=== PATIENT | female | born 1995 | race Caucasian/White ===

== ENCOUNTER → 2017-04-14 | Outpatient (CLI) | payer OTHER ==
[~2017-04-14] MED LIST: AMOCLA875 PO; AMOX500 PO; ARIP10 PO; Abilify5 MG; BUSP10; BUSP10 PO; Cortisporin Ear10 ML RIGHTEAR; HYDPAM50; HYDR1TAB94 PO; IBUP800 PO; MECL25 PO; MEDR150I IM; Norco 5-325 Ta1 EACH PO; OMEP10ER PO; ONDA4ODT SL; PARO20 PO; Pepcid20 MG PO; Percocet 5-3251 EACH PO; Prazosin HCl1 MG PO; SULTRIDS PO; TRAZ100 PO; VENL150ER PO; VENL75ER; VENL75ER PO; Vistaril25 MG PO
[2017-04-14 17:04] LABS: BASOPHILS ABSOLUTE AUTO 0.02 K/mm3 (0.00-0.23); BASOPHILS PERCENT AUTO 0 % (0-2); EOSINOPHILS PERCENT AUTO 0 % (0-6); Hematocrit 38.5 % (33.0-51.0); Hemoglobin 12.7 g/dL (11.5-16.0); IMMATURE GRAN ABSOLUTE AUTO 0.03 K/mm3 (0.00-0.10); IMMATURE GRAN PERCENT AUTO 0 % (0-1); LYMPHOCYTES ABSOLUTE AUTO 2.07 K/mm3 (0.84-5.20); LYMPHOCYTES PERCENT AUTO 28 % (21-46); MONOCYTES ABSOLUTE AUTO 0.58 K/mm3 (0.16-1.47); MONOCYTES PERCENT AUTO 8 % (4-13); Mean Corpuscular HGB 30.5 pg (26.0-34.0); Mean Corpuscular Volume 92 fL (80-100); Mean Platelet Volume 10.9 fL (9.1-12.4); NEUTROPHILS ABSOLUTE AUTO 4.61 K/mm3 (1.96-9.15); NEUTROPHILS PERCENT AUTO 63 % (41-73); Platelet Count 292 K/mm3 (150-400); RDW Coefficient Variation 12.1 % (11.7-14.2); RDW Standard Deviation 41.3 fL (35.1-46.3); Red Blood Cell Count 4.17 M/mm3 (3.80-5.20); White Blood Cell Count 7.31 K/mm3 (4.00-11.30)
[2017-04-14 17:28] LABS: Alanine Aminotransfer (ALT/SGP 33 U/L (12-78); Albumin, Blood 3.8 g/dL (3.4-5.0); Albumin/Globulin Ratio 1.1 (0.8-1.8); Alk Phos 65 U/L (50-136); Anion Gap 8 mmol/L (6-16); Aspartate Aminotrans (AST/SGOT 16 U/L (12-37); Bilirubin, Total 0.2 mg/dL (0.1-1.0); Blood Urea Nitrogen 10 mg/dL (8-24); Bun/Creatinine Ratio 21.3 (12.0-20.0); CO2, Blood 25 mmol/L (21-32); Calcium, Blood 8.7 mg/dL (8.5-10.1); Chloride, Blood 108 mmol/L (98-108); Creatinine, Blood 0.47 mg/dL (0.40-1.00); Globulin, Blood 3.5 g/dL (2.2-4.0); Glomerular Filtration Rate >60 (60-); Glucose, Blood 87 mg/dL (70-99); Potassium, Blood 3.9 mmol/L (3.5-5.5); Sodium, Blood 141 mmol/L (136-145); Total Protein, Blood 7.3 g/dL (6.4-8.2)
[2017-04-14 17:35] LABS: Thyroid Stimulating Hormone 0.493 uIU/mL (0.360-4.800)
== END | disposition home or self-care (01) ==
LOC: LAB 15:29
PROVIDERS: Hospitalist
DX: K62.5 Hemorrhage of anus and rectum (principal); R53.83 Other fatigue; R30.0 Dysuria
CPT/HCPCS: 80053; 84439; 84443; 85025; 87086

== ENCOUNTER 2017-05-31 08:37 | Day surgery (SDC) | payer OTHER ==
[~2017-05-31] VITALS: Ht 162.6 cm; Wt 72.2 kg
== END 2017-05-31 10:20 | disposition home or self-care (01) ==
LOC: ORSCSDS 08:37
PROVIDERS: Internal Medicine Gastroenterology
PROC: 0DBN8ZX Excision of Sigmoid Colon, Via Natural or Artificial Opening Endoscopic, Diagnostic (ICD-10-PCS; principal; 2017-05-31 09:45)
PROC: 0DB98ZX Excision of Duodenum, Via Natural or Artificial Opening Endoscopic, Diagnostic (ICD-10-PCS; principal; 2017-05-31 09:45)
DX: K92.0 Hematemesis (principal); R10.13 Epigastric pain; K29.80 Duodenitis without bleeding; K20.9 Esophagitis, unspecified; R19.7 Diarrhea, unspecified; D12.5 Benign neoplasm of sigmoid colon; K62.5 Hemorrhage of anus and rectum; K64.8 Other hemorrhoids; F31.9 Bipolar disorder, unspecified
CPT/HCPCS: 88305; 88342; J2250; J7120

== ENCOUNTER 2020-05-14 03:44 | Emergency (ER) | payer BC ==
[~2020-05-14] VITALS: Ht 162.6 cm; Wt 79.4 kg
[2020-05-14] MEDS ORDERED: Ativan1 MG PO (05:12)
== END 2020-05-14 05:32 | disposition home or self-care (01) ==
LOC: ER 03:44
DX: F41.1 Generalized anxiety disorder (principal); F43.0 Acute stress reaction; F17.210 Nicotine dependence, cigarettes, uncomplicated; Z88.8 Allergy status to other drugs, medicaments and biological substances
CPT/HCPCS: 99284

== ENCOUNTER → 2022-11-25 | Outpatient (CLI) | payer OTHER ==
[~2022-11-25] MED LIST changes: +Ativan1 MG PO
[2022-11-25 16:59] LABS: U Amphetamine Screen Not Detected; U Barbituate Screen Not Detected; U Benzodiazapine Screen Not Detected; U Buprenorphine Screen Not Detected; U Cannabinoids Screen DETECTED; U Cocaine Screen Not Detected; U Methadone Screen Not Detected; U Methamphetamine Screen Not Detected; U Opiates Screen Not Detected; U Oxycodone Screen Not Detected; U Phencyclidine Screen Not Detected; U Propoxyphene Screen Not Detected
== END | disposition home or self-care (01) ==
LOC: LAB 15:36 → LAB SHORT 15:36
PROVIDERS: Internal Medicine Critical Care Medicine
DX: R40.0 Somnolence (principal)

== ENCOUNTER 2023-09-06 16:47 | Emergency (ER) | payer OTHER ==
[~2023-09-06] VITALS: Ht 162.6 cm; Wt 77.1 kg
[~2023-09-06 16:47] MED LIST changes: +DIVA125 PO; +Divalproex Sod500 MG PO; +HYDPAM50 PO; +LORA.5 PO; +OMEP20ER PO; +ZIPR80 PO
[2023-09-06 16:51] VITALS: BP 146/88
[2023-09-06] MEDS ORDERED: Lidocaine HCl 4% Cream 5 GM TOP ONE (17:10)
[2023-09-06] MEDS ORDERED: ASPERFLEX LIDOC15 GM TOP (17:12)
== END 2023-09-06 17:24 | disposition home or self-care (01) ==
LOC: ER 16:47
DX: K64.9 Unspecified hemorrhoids (principal); F31.9 Bipolar disorder, unspecified; F17.210 Nicotine dependence, cigarettes, uncomplicated; Z79.899 Other long term (current) drug therapy; Z88.8 Allergy status to other drugs, medicaments and biological substances
CPT/HCPCS: A9270

== ENCOUNTER 2024-01-03 09:26 | Day surgery (SDC) | payer OTHER ==
[~2024-01-03 09:26] MED LIST changes: +ASPERFLEX LIDOC15 GM TOP; +Lactated Ringer's 1,000 ML IV ONE; +propofoL 50 ML IV ONE
[2024-01-03] MEDS ORDERED: HYDCHL50 (10:36)
[2024-01-03] MEDS ORDERED: Lactated Ringer's 1,000 ML IV ONE (11:05)
[2024-01-03 12:22] VITALS: BP 100/70
== END 2024-01-03 12:24 | disposition home or self-care (01) ==
LOC: ORSCSDS 09:26
PROVIDERS: Surgery
PROC: 0DBP8ZX Excision of Rectum, Via Natural or Artificial Opening Endoscopic, Diagnostic (ICD-10-PCS; principal; 2024-01-03 11:00)
DX: K62.89 Other specified diseases of anus and rectum (principal); K60.2 Anal fissure, unspecified; Z86.0100 Personal history of colon polyps, unspecified; K62.1 Rectal polyp; F41.9 Anxiety disorder, unspecified; F31.9 Bipolar disorder, unspecified; Z79.899 Other long term (current) drug therapy
CPT/HCPCS: 88305; J2704; J7120

== ENCOUNTER → 2024-11-08 | Outpatient (CLI) | payer OTHER ==
[~2024-11-08] MED LIST changes: +HYDCHL50; -Lactated Ringer's 1,000 ML IV ONE; -propofoL 50 ML IV ONE
== END ==
LOC: LAB 18:29 → LAB SHORT 18:29
PROVIDERS: Registered Nurse
DX: Z01.419 Encounter for gynecological examination (general) (routine) without abnormal findings (principal)
CPT/HCPCS: 87624; G0145

== ENCOUNTER 2024-12-20 16:46 | Emergency (ER) | payer OTHER | END 2024-12-20 18:44 | disposition home or self-care (01) | LOC: ER 16:46 | DX: S06.0X0A Concussion without loss of consciousness, initial encounter (principal); F17.210 Nicotine dependence, cigarettes, uncomplicated; Z79.899 Other long term (current) drug therapy; X58.XXXA Exposure to other specified factors, initial encounter ==